=== PATIENT | female | born 1960 | race African-American/Black ===

== ENCOUNTER → 2020-07-16 | Outpatient (CLI) | payer BC ==
[2015-04-24 23:00] VITALS: BP 180/101
[~2020-07-16] MED LIST: BYSTOLIC10 MG PO; CARV25TA2 PO; CITA40TA12 PO; HYDR-2761 PO; HYDR12.58 PO; LISI-130 PO; MULT-505 PO; NIFE30TA2 PO
--- NOTE | 2020-07-16 14:08 | KCIC ---
Examination: MRI of the right knee without contrast HISTORY: History of right knee pain COMPARISON: None available TECHNIQUE: Multiplanar multisequence MR imaging of the right knee was performed without contrast. FINDINGS: The anterior cruciate ligament, posterior cruciate ligament appear intact. The attenuated appearance of the body of the medial meniscus. There is increased signal identified in the appearance of the lateral meniscus likely secondary to severe degenerative changes. There is complete cartilage loss identified in the medial compartment. There is near complete cartilage loss with deep fissuring identified in the lateral, patellofemoral compartments. Large osteophyte formation identified in the medial, lateral, patellofemoral compartments. Moderate knee joint effusion. Small popliteal cyst. There is a 8 mm low intensity focus identified in the knee joint posterior to the posterior cruciate ligament likely loose body. 4 mm low-density focus or loose body identified in the popliteal cyst. Multiple subchondral cystic changes identified in the medial, lateral, patellofemoral compartments. The extensor mechanism appears intact. IMPRESSION: 1. 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 2. Moderate degenerative changes with small popliteal cyst. A 8 mm low intensity focus identified in the knee joint posterior to the posterior cruciate ligament likely loose body. 4 mm low-density focus or loose body identified in the popliteal cyst. 3. Grade III chondromalacia medial, lateral, patellofemoral compartments. 4. Attenuated appearance of the medial, lateral meniscus likely degenerative changes. Electronically signed by: Lloyd Ordaz MD (07/16/2020 2:05 PM) [id number]
== END ==
LOC: KCIC MRI 12:19
PROVIDERS: ATTEND Nurse Practitioner Family
DX: M17.11 Unilateral primary osteoarthritis, right knee (principal); M25.761 Osteophyte, right knee; M94.261 Chondromalacia, right knee; M71.21 Synovial cyst of popliteal space [Baker], right knee; G89.29 Other chronic pain
CPT/HCPCS: 73721